=== PATIENT | male | born 1985 | race Hispanic/Latino ===

== ENCOUNTER 2017-08-22 17:05 | Emergency (ER) | payer OTHER, SELFPAY ==
[~2017-08-22 17:05] MED LIST: ISOVUE-370 76%-LOCM 1 ML ONE
[2017-08-22] MEDS ORDERED: Fluorescein Opthalmic Strip ONE (17:20)
[2017-08-22] MEDS ORDERED: Proparacaine 0.5% Opth 15 ML BOT ONE (17:35)
[2017-08-22] MEDS ORDERED: Diazepam 5 MG TAB ONE (17:48)
[2017-08-22] MEDS ORDERED: Ketorolac Tromethamine 30 MG/ML VIAL ONE (17:50)
[2017-08-22 18:18] LABS: #Eosinphils 0.2 thou/uL (0.0-0.7); #Lymphocytes 2.3 thou/uL (1.20-3.40); #Monocytes 0.6 thou/uL (0.11-0.59); #Neutrophils 3.8 thou/uL (1.40-6.50); %Basophils 0.6 % (0.0-1.0); %Eosinophils 2.2 % (0.0-10.0); %Lymphocytes 33.9 % (21.0-51.0); %Monocytes 8.5 % (0.0-10.0); %Neutrophils 54.7 % (42.0-75.0); Mean Corpuscular HGB CONC 34.5 g/dL (32.0-36.0); Mean Corpuscular Hemoglobin 29.7 pg (27.0-31.0); Mean Corpuscular Volume 86.1 fl (80.0-94.0); Mean Platelet Volume 8.3 fL (7.4-10.4); Platelet Count 275 thou/uL (130-400); RBC Distribution Width 12.4 % (11.5-14.5); Red Blood Cell (RBC) Count 5.06 mill/uL (4.70-6.10); White Blood Cell (WBC) Count 6.9 thou/uL (4.8-10.8)
[2017-08-22 18:40] LABS: ALT (SGPT) 134 U/L (8-55); AST (SGOT) 52 U/L (5-34); Albumin 4.4 g/dL (3.5-5.0); Alkaline Phosphatase 87 U/L (40-150); Anion Gap 13 mmol/L (10-20); BUN (Urea Nitrogen) 14 mg/dL (8.9-20.6); Bilirubin, Total 0.7 mg/dL (0.2-1.2); Calc. Creatinine Clearance 0 mL/min (70-130); Calcium 9.3 mg/dL (7.8-10.44); Carbon Dioxide 23 mmol/L (22-29); Chloride 107 mmol/L (98-107); Estimated GFR-MDRD Greater than 90; Globulin 3.9 g/dL (2.4-3.5); Glucose 116 mg/dL (70-105); Potassium 3.9 mmol/L (3.5-5.1); Protein, Total 8.3 g/dL (6.0-8.3); Sodium 139 mmol/L (136-145)
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
== END 2017-08-22 23:03 | disposition home or self-care (01) ==
LOC: ERS 17:05
DX: T15.02XA Foreign body in cornea, left eye, initial encounter (principal); T15.01XA Foreign body in cornea, right eye, initial encounter; V43.52XA Car driver injured in collision with other type car in traffic accident, initial encounter
CPT/HCPCS: 36415; 65222; 70450; 71045; 72125; 72141; 74177; 80053; 85025; 96372; J1885

== ENCOUNTER 2017-09-20 14:09 | Outpatient (CLI) | payer OTHER ==
--- NOTE | 2017-09-20 15:34 | RAD ---
CERVICAL SPINE RADIOGRAPHS 3 VIEWS: INDICATION: Cervical radiculopathy. FINDINGS: There is incomplete visualization of the cervicothoracic junction due to overlying shoulders. Neutra l view reveals no significant malalignment. No obvious translational motion of significance within t he visualized aspects of the cervical spine. Cervical spine is reliably visualized at the C5 level. IMPRESSION: No obvious subluxation or translational motion within the imaged portions of the partially visualized cervical spine. POS: [facility]
== END 2017-09-20 14:10 | disposition home or self-care (01) ==
LOC: TBSIIMAG 14:09
PROVIDERS: ATTEND Neurological Surgery
DX: M54.2 Cervicalgia (principal)
CPT/HCPCS: 72040